=== PATIENT | male | born 1970 | race Caucasian/White ===

== ENCOUNTER → 2018-03-18 | Outpatient (CLI) | payer BC ==
[~2018-03-18] MED LIST: CEFTIN 250250 MG/TAB PO; PROTONIX 40MG T40 MG PO; ZESTRIL 10MG10 MG PO
[2018-03-18 17:39] LABS: BASO # 0.1 (0.0-0.2); BASO % 0.8 % (0.0-2.0); EOS # 0.8 (0.0-0.7); EOS % 10.2 % (0-4.0); GRAN # 3.8 (1.4-6.5); GRAN % 49.7 % (42.2-75.2); HEMATOCRIT 41.1 % (42.0-52.0); HEMOGLOBIN 14.7 g/dl (13.5-18.0); LYMPH # 2.2 (1.2-3.4); LYMPH % 29.3 % (20.0-51.0); MEAN CELL VOLUME 92 fl (80.0-100.0); MEAN CORPUSCULAR HEMOGLOBIN 33 pg (27.0-31.0); MEAN CORPUSCULAR HGB CONC 36 g/dl (33.0-37.0); MEAN PLATELET VOLUME 10.2 fl (7.4-10.4); MONO # 0.7 (0.1-0.6); MONO % 9.7 % (1.7-9.3); PLATELET COUNT 224 K/mm3 (130-400); RED BLOOD COUNT 4.46 M/mm3 (4.20-5.60); REDCELL DISTRIBUTION WIDTH-CV 12.5 % (11.5-14.5)
[2018-03-18 17:47] LABS: ALBUMIN 4.2 gm/dL (3.5-5.0); BILIRUBIN,TOTAL 0.5 mg/dL (0.0-1.0); CALCIUM 9.1 mg/dL (8.4-10.2); CHOLESTEROL RISK RATIO 4.8; CREATININE, serum 0.86 mg/dL (0.66-1.25); POTASSIUM 3.6 mmol/L (3.4-5.0); TOTAL PROTEIN 7.6 gm/dL (6.4-8.2)
== END ==
LOC: COL.LAB 16:55
PROVIDERS: Family Medicine
DX: Z00.00 Encounter for general adult medical examination without abnormal findings (principal); Z13.1 Encounter for screening for diabetes mellitus; Z13.220 Encounter for screening for lipoid disorders; I10 Essential (primary) hypertension

== ENCOUNTER 2021-10-31 13:37 | Emergency (ER) | payer SELFPAY ==
[~2021-10-31] VITALS: Ht 182.9 cm; Wt 99.1 kg
[2021-10-31 13:49] VITALS: TEMP 97.8
[2021-10-31 15:10] VITALS: BP 110/78; PULSE 71
== END 2021-10-31 15:10 | disposition home or self-care (01) ==
LOC: COL.ER 13:37
DX: S61.210A Laceration without foreign body of right index finger without damage to nail, initial encounter (principal); W29.3XXA Contact with powered garden and outdoor hand tools and machinery, initial encounter; Y92.59 Other trade areas as the place of occurrence of the external cause; Y99.0 Civilian activity done for income or pay